=== PATIENT | male | born 1975 | race Caucasian/White ===

== ENCOUNTER 2017-07-06 22:16 | Emergency (ER) | payer BC ==
[~2017-07-06] VITALS: Ht 167.6 cm; Wt 70.8 kg
[2017-07-07 00:03] LABS: ADD MIUA? NO; BILIRUBIN NEGATIVE; BLOOD NEGATIVE; COLOR YELLOW ((YELLOW)); GLUCOSE (STRIP) NEGATIVE; KETONES NEGATIVE; LEUKOCYTES NEGATIVE; NITRITE NEGATIVE; PROTEIN (STRIP) NEGATIVE; SPECIFIC GRAVITY 1.026 (1.000-1.030); UCUL ADDED? NO; UROBILINOGEN 0.2 MG/DL (0.2-1.0)
[2017-07-07] MEDS ORDERED: MOTRIN800 MG PO (01:19)
[2017-07-07 01:32] VITALS: BP 133/86
== END 2017-07-07 01:33 | disposition home or self-care (01) ==
LOC: EME 22:16
PROVIDERS: Nurse Practitioner Family
DX: N50.82 Scrotal pain (principal); N43.3 Hydrocele, unspecified
CPT/HCPCS: 76870; 81003; 99281; 99284

== ENCOUNTER 2017-08-08 02:29 | Emergency (ER) | payer BC ==
[~2017-08-08] VITALS: Ht 167.6 cm; Wt 72.9 kg
[~2017-08-08 02:29] MED LIST: MOTRIN800 MG PO
[2017-08-08] MEDS ORDERED: NORCO 5/3251 TABLET PO (04:26)
[2017-08-08 04:32] VITALS: BP 133/90
== END 2017-08-08 04:34 | disposition home or self-care (01) ==
LOC: EME 02:29
DX: G44.209 Tension-type headache, unspecified, not intractable (principal); M79.1 Myalgia; M54.5 Low back pain; M54.2 Cervicalgia; Z91.81 History of falling
CPT/HCPCS: 99281; 99284; S0020